=== PATIENT | male | born 1990 | race Caucasian/White ===

== ENCOUNTER 2024-07-02 22:12 | Emergency (ER) | payer OTHER, SELFPAY ==
[2024-07-02 22:17] VITALS: BP 140/86
--- NOTE | 2024-07-02 22:39 | ED.GENMED ---
History of Present Illness
General
Chief Complaint: Alcohol Problem
Source: patient
Exam Limitations: none
Time Seen by Provider: 07/02/24 22:30
History of Present Illness
History of Present Illness:
33-year-old male presents for medical clearance for alcohol rehab. Patient lives in a [facility] house for alcohol abuse. Last evening, approximately 24 hours prior to arrival, he states that he drank most of a brand-new bottle of rubbing alcohol.
Patient admits to trying to harm himself with this. When his [facility] house found out about it, they were going to evict him but stated that if he went through and alcohol rehab program they would allow him to come back. Patient has no complaints
at this time. He is cooperative.
Review of Systems
Review of Systems
Allergies reviewed?: Yes
All Other Systems: ROS reviewed and negative except as documented in HPI and ROS
Constitutional: Reports no symptoms
EENT: Reports no symptoms
Respiratory: Reports no symptoms
Cardiac: Reports no symptoms
ABD/GI: Reports no symptoms
: Reports no symptoms
Musculoskeletal: Reports no symptoms
Skin: Reports no symptoms
Neurological: Reports no symptoms
Endocrine: Reports no symptoms
Hematologic/Lymphatic: Reports no symptoms
Psychiatric: Reports depression, anxiety and suicidal
Phy Exam
General Physical Exam
General Presentation: well appearing
General Skin: warm and dry
General Habitus: obese
General Mental: alert
General Hydration: appears well hydrated
ENT Exam
ENT Exam: EOMI, pharynx normal, neck supple and normocephalic
Eye Exam
Eye Exam: PERRL, cornea clear and conjunctiva normal
Cardiovascular Exam
Cardiovascular Exam: regular rate/rhythm, no edema, no murmur and normal peripheral pulses
Pulmonary Exam
Pulmonary Exam: lungs clear, no respiratory distress, no rales, no crackles, no rhonchi, no stridor, no wheezing and no cough
Gastrointestinal Exam
Gastrointestinal Exam: normal bowel sounds, non tender, soft, no organomegaly, no pulsatile mass and non distended
Neurological Exam
Neurological Exam: alert, oriented x3, no motor deficits and speech normal
Musculoskeletal Exam
Musculoskeletal Exam: full ROM and no edema
Skin Exam
Skin Exam: normal color, warm/dry, no rash and no petechia
Psychiatric Exam
Psychiatric Exam: normal mood/affect
Scores
Withdrawal Assessment of Alcohol
Withdrawal Assessment Completed?: Not applicable
Course
Orders/Labs/Results
Orders:
Orders
07/02/24 22:28
Crisis Consult Urgent
Reason for Consult: SELF HARM
07/02/24 22:30
Bedside Glucose- Treatment ONCE
Cardiac Monitoring- Treatment ONCE
0.9% Sodium Chloride 1000 ml [Nss] 1,000 ml IV BOLUS
07/02/24 22:31
Electrocardiogram (*1) Stat
Reason for Study: Other
Other Reason for Exam: overdose
EKG- Treatment ONCE
07/02/24 22:32
Pantoprazole [Protonix IV] 80 mg IV NOW STA
07/02/24 22:56
Acetaminophen Urgent
Alcohol Urgent
B-Hydroxybutyrate Urgent
CKMB [CPK Isoenzyme] Urgent
Complete Blood Count/With Diff Urgent
Comprehensive Metabolic Panel Urgent
PTT Urgent
Prothrombin Time Urgent
Salicylate Urgent
Serum Osmolality Urgent
Troponin I Urgent
07/02/24 23:24
Urinalysis Reflex To Culture Urgent
Date Specimen was Collected: 07/02/24
Time Specimen was Collected: 23:17
Urine Drug Abuse Screen Urgent
Date Specimen was Collected: 07/02/24
Time Specimen was Collected: 23:17
Urine Microscopic Reflex Cult Urgent
Urine Culture Urgent
NEGRITA Source: U
Specimen Description:
Date Specimen was Collected: 09/10/24
Time Specimen was Collected: 23:17
Abnormal Lab Results
07/02/24 07/02/24 07/02/24
22:56 23:01 23:24
Abs Immat Gran (auto) 0.1 H 10^3/uL
(0-0.05)
Immature Gran % 0.6 H %
(0-0.5)
PT 15.1 H Sec
(11.4-14.6)
Glucose 112 H mg/dl
(70-99)
Serum Osmolality 319 H mOsm/kg
(275-300)
Total Creatine Kinase 282 H U/L
(55-170)
Leukocyte Esterase Rfl 1+ A
(Negative)
Urine WBC (Reflex) 16-20 A /HPF
(0-5)
Urine Bacteria (Reflex) Moderate A
(Negative)
Salicylates < 1.0 L mg/dl
(2.0-20.0)
Acetaminophen < 10 L ug/ml
(10-30)
POC Glucose 107 H mg/dl
(70-99)
07/02/24 22:56
07/02/24 22:56
Vital Signs
Initial and Last Documented VS:
Initial Vital Signs
Temp Pulse Resp BP Pulse Ox
97.8 F 80 22 140/86 98
07/02/24 22:17 07/02/24 22:17 07/02/24 22:17 07/02/24 22:17 07/02/24 22:17
Last Documented Vital Signs
Temp Pulse Resp BP Pulse Ox
97.7 F 78 17 136/74 98
07/03/24 10:18 07/03/24 10:18 07/03/24 10:18 07/03/24 10:18 07/03/24 10:18
*Critical Care Note
Total Time (30-74mins, 75-104mins- exclusive of procedures): Not Applicable
Update Note
Update Note:
Calculated serum osmolarity is 315 to 320 mOsm/kg. Measured serum osmolarity is 319 mOsm/kg
Anion gap is [address] Mcdaniels of [facility] toxicology. We did review all the lab work. At this point he feels that it is safe to proceed with a psychiatric workup and patient is medically cleared from a rubbing alcohol perspective
ED Attending Note
-
Portions of this chart may have been created with voice recognition software.� Occasional wrong word or��sound alike� substitutions may have occurred due to the inherent limitations of voice recognition software.
Discharge Plan
Departure
Patient Disposition: Home (Routine Discharge)
Patient Status:: 201
Patient with high blood pressure during this ER visit?: Yes
Condition: Good
Discharge Problem:
Alcohol intoxication, Suicide attempt, Isopropyl alcohol ingestion
Instructions: Alcohol Use Disorder (DC), Suicide Prevention
Referrals:
UNKNOWN - PT DOES,NOT KNOW [Family Provider] -
Interventions
Interventions:
*Risk Screen - Suicide Last Done: 07/02/24 22:17
*General Assessment Last Done: 07/02/24 23:26
*Neglect/Abuse Screening Last Done: 07/02/24 23:26
ED- Fall Risk Assessment Last Done: 07/03/24 00:24
*ED COVID-19 Vaccine History Last Done: 07/02/24 23:26
*Nursing Disposition Last Done: 07/03/24 11:25
ED- Neurological Assessment Last Done: 07/03/24 00:24
ED-Psychological Assessment Last Done: 07/03/24 00:20
Discharge Date and Time
Discharge Date/Time: 07/03/24 11:20
Print Language: TURKMEN
[2024-07-02 23:03] LABS: Glucose - Point of Care 107 mg/dl (70-99)
[2024-07-02] MEDS: NSS 1000 IV (23:09)
[2024-07-02 23:13] LABS: % Basophils 0.5 % (0-2); % Eosinophils 0.2 % (0-6); % Immature Granulocytes 0.6 % (0-0.5); % Monocytes 6.3 % (1.7-9.3); % Neutrophils 66.4 % (42.2-75.2); Absolute Immature Granulocytes 0.1 10^3/uL (0-0.05); Absolute Lymphocytes 2.2 10^3/uL (1.2-3.4); Absolute Monocytes 0.5 10^3/uL (0.1-0.6); Absolute Neutrophils 5.5 10^3/uL (1.4-6.5); Hematocrit 39.9 % (39.0-52.0); Mean Corp Hgb Conc. 35.1 g/dL (33.0-37.0); Mean Corpuscular Hgb 28.4 pg (27.0-31.0); Mean Corpuscular Volume 80.9 fL (80.0-94.0); Mean Platelet Volume 9.5 fL (7.4-10.4); Nucleated Red Blood Cells % 0 % (-); Platelet Count 270 10^3/uL (130-400); Red Blood Cell Count 4.93 10^6/uL (4.70-6.10); Red Cell Dist. Width 12.7 % (11.5-14.5); White Blood Cell Count 8.3 10^3/uL (4.8-10.8)
[2024-07-02] MEDS: PROTONIX IV 80 MG IV (23:16)
[2024-07-02 23:22] LABS: PT 15.1 Sec (11.4-14.6)
[2024-07-02 23:23] LABS: APTT 30.3 Sec (23.4-35.0)
[2024-07-02 23:25] VITALS: BMI 51.8
[2024-07-02 23:32] LABS: ALT (SGPT) 28 U/L (0-50); AST (SGOT) 36 U/L (17-59); Acetaminophen < 10 ug/ml (10-30); Albumin 4.3 g/dl (3.5-5.0); Alcohol 104 mg/dl; Alkaline Phosphatase 46 U/L (38-126); Blood Urea Nitrogen 11 mg/dl (9-20); Calcium 8.9 mg/dl (8.4-10.2); Carbon Dioxide 26 mmol/L (22-30); Chloride 103 mmol/L (98-107); Estimated Creatinine Clearance > 125 ml/min; Glucose 112 mg/dl (70-99); Potassium 4.1 mmol/L (3.5-5.1); Salicylate < 1.0 mg/dl (2.0-20.0); Sodium 141 mmol/L (135-145); Total Bilirubin 0.8 mg/dl (0.2-1.3); Total CK 282 U/L (55-170); Total Protein 6.5 g/dl (6.3-8.2); eGFR > 60.00
[2024-07-02 23:32] LABS: Urine Albumin Trace (Neg - Trace); Urine Bilirubin Negative (Negative); Urine Character Clear (Clear); Urine Color Yellow; Urine Glucose Negative (Negative); Urine Ketone Negative (Negative); Urine Leukocyte 1+ (Negative); Urine Nitrite Negative (Negative); Urine Occult Blood Negative (Negative); Urine Specific Gravity 1.015 (<1.030); Urine Urobilinogen Negative (Neg - 1+)
[2024-07-02 23:37] LABS: Troponin I < 0.012 ng/ml
[2024-07-02 23:38] LABS: B-Hydroxybutyrate 0.05 mmol/L (0.02-0.27)
[2024-07-02 23:55] LABS: Osmolality Serum 319 mOsm/kg (275-300)
[2024-07-02 23:56] LABS: Amphetamines Negative (Negative); Barbiturates Negative (Negative); Benzodiazepines Negative (Negative); Buprenorphine Negative (Negative); Cocaine Negative (Negative); Marijuana Negative (Negative); Methadone Negative (Negative); Methamphetamines Negative (Negative); Opiates Negative (Negative); Phencyclidine Negative (Negative); Tricyclic Antidepressants Negative (Negative)
[2024-07-03 00:13] LABS: CKMB 1.5 ng/ml (0.0-2.4)
[2024-07-03 00:22] LABS: Urine White Cell 16-20 /HPF (0-5)
[2024-07-03 00:23] LABS: Urine Bacteria Moderate (Negative); Urine Red Blood Cell 0-2 /HPF (0-2)
[2024-07-03 03:23] VITALS: BP 131/95
[2024-07-03 10:18] VITALS: BP 136/74
== END 2024-07-03 11:20 ==
LOC: EMR 22:12
PROVIDERS: EMERGENCY PHYSICIAN Student in an Organized Health Care Education/Training Program
DX: F10.129 Alcohol abuse with intoxication, unspecified (principal); T51.2X2A Toxic effect of 2-Propanol, intentional self-harm, initial encounter
CPT/HCPCS: 96374; 99285; 80053; 80143; 80179; 80306; 81003; 81015; 82010; 82077; 82550; 82553; 82962; 83930; 84484; 85025; 85610; 85730; 87077; 87086; 87147; 93005

== ENCOUNTER 2025-07-03 18:14 | Emergency (ER) | payer SELFPAY ==
[2025-07-03 18:27] VITALS: BP 148/96
--- NOTE | 2025-07-03 19:47 | ED.GENMED ---
History of Present Illness
General
Chief Complaint: Crisis Evaluation
Source: patient
Time Seen by Provider: 07/03/25 19:37
History of Present Illness
History of Present Illness:
34-year-old male presents to the emergency room with his roommate because he has been feeling extremely depressed. He 'hates himself' because he has not accomplished anything on life. He feels suicidal but has not formulated a plan on how he would
accomplish this. He denies any attempts at hurting himself either today or ever. He does drink alcohol occasionally but denies any alcohol intake over the past 24 hours. Patient denies any medical history.
Phy Exam
Physical Exam
Physical Exam:
General: Awake, Alert, Oriented X3. No acute distress. Flat affect, seems sad. High BMI
Vitals: unremarkable
Head: Atraumatic
Eyes: Pupils equal, EOMI
Throat: Airway intact, no exudates
Neck: Trachea midline
Lungs: Clear and equal b/l
Heart: Regular rate, no murmurs
Abd: Soft, Nontender, No pulsatile mass
Neuro: Nonfocal
Skin: Warm, dry, no rash
Extremities: pulses equal b/l, no edema
Course
Orders/Labs/Results
Orders:
Orders
07/03/25 18:26
Crisis Consult Urgent
Reason for Consult: SI
07/03/25 19:46
Lorazepam [Ativan] 1 mg PO NOW STA
07/03/25 19:58
ED Special Safety Observation ONCE
Observation level: One to Two
07/03/25 21:11
Alcohol Urgent
COVID-19 Antigen Urgent
Source: Nasal Swab
07/03/25 23:40
Fentanyl, Urine Urgent
Urine Drug Abuse Screen Urgent
Date Specimen was Collected: 07/03/25
Time Specimen was Collected: 23:39
Abnormal Lab Results
07/03/25
23:40
U Benzodiazepines Scrn Positive H
(Negative)
Vital Signs
Initial and Last Documented VS:
Initial Vital Signs
Temp Pulse Resp BP Pulse Ox
98 F 115 16 148/96 97
07/03/25 18:27 07/03/25 18:27 07/03/25 18:27 07/03/25 18:27 07/03/25 18:27
Last Documented Vital Signs
Temp Pulse Resp BP Pulse Ox
98 F 108 22 148/96 100
07/03/25 18:27 07/03/25 22:27 07/03/25 22:27 07/03/25 18:27 07/03/25 22:27
MDM/Problems Addressed
Differential Diagnosis Includes:
Suicidal ideations, severe depression
MDM/Problems Addressed:
Patient presents severely depressed. He expresses suicidal ideations but has no plan. He has not done any anything to hurt himself. He strongly desires inpatient management. Crisis will search for a bed for him.
*Pulse Oximetry
SaO2: 97
Oxygen Mode of Delivery: Room air
Patient hypoxic: no
*Critical Care Note
Total Time (30-74mins, 75-104mins- exclusive of procedures): Not Applicable
ED Attending Note
-
Portions of this chart may have been created with voice recognition software.� Occasional wrong word or��sound alike� substitutions may have occurred due to the inherent limitations of voice recognition software.
Discharge Plan
Departure
Patient Disposition: Psych Facility
Date of Disposition: 07/03/25
Time of Disposition: 22:26
Patient Status:: 201
Condition: Fair
Discharge Problem:
Depression, Depression with suicidal ideation
Interventions
Interventions:
*Risk Screen - Suicide Last Done: 07/03/25 18:25
*Neglect/Abuse Screening Last Done: 07/03/25 18:27
ED-Psychological Assessment Last Done: 07/03/25 21:34
Discharge Date and Time
Print Language: [place]
[2025-07-03] MEDS: ATIVAN 1 MG PO (21:02)
[2025-07-03 21:31] LABS: COVID-19 Antigen Negative (Negative)
== END 2025-07-04 06:06 ==
LOC: EMR 18:14
PROVIDERS: EMERGENCY PHYSICIAN Emergency Medicine
DX: F32.A Depression, unspecified (principal); R45.851 Suicidal ideations
CPT/HCPCS: 99285; 80306; 80307; 82077; 87811; 99284